=== PATIENT | female | born 1995 | race African-American/Black ===

== ENCOUNTER 2021-02-26 00:47 | Emergency (ER) | payer OTHER ==
[2021-02-26 01:38] VITALS: BP 137/82; PULSE 82; TEMP 98.2; BMI 28.6
[2021-02-26] MEDS ORDERED: ONDANSETRON 4 MG TABLET PO ONE (01:53)
[2021-02-26] MEDS ORDERED: FAMOTIDINE 20 MG TABLET PO ONE (01:59)
[2021-02-26] MEDS ORDERED: FAMOTIDINE 20 MG TABLET ONE (02:00)
[2021-02-26] MEDS ORDERED: ONDANSETRON *ODT* 4 MG TABLET ONE (02:01)
== END 2021-02-26 02:58 | disposition home or self-care (01) ==
LOC: JER 00:47
DX: R11.2 Nausea with vomiting, unspecified (principal); K29.70 Gastritis, unspecified, without bleeding
CPT/HCPCS: 84703; 99283-25